=== PATIENT | male | born 1995 | race Caucasian/White ===

== ENCOUNTER 2022-05-28 22:20 | Emergency (ER) | payer SELFPAY ==
[~2022-05-28] VITALS: Ht 170.2 cm; Wt 70.3 kg
[~2022-05-28 22:20] MED LIST: IBUP800 PO; Norco 5-325 Ta1 EACH PO; Zofran Odt4 MG SL
== END 2022-05-29 02:27 | disposition home or self-care (01) ==
LOC: ER 22:20
DX: S61.011A Laceration without foreign body of right thumb without damage to nail, initial encounter (principal); W22.8XXA Striking against or struck by other objects, initial encounter
CPT/HCPCS: 12002; 73140; 90471; 90714; 99282-25; A9270